=== PATIENT | female | born 1960 | race Caucasian/White ===

== ENCOUNTER 2024-07-08 16:06 | Inpatient (IN) | payer MEDICARE, OTHER, SELFPAY ==
[2024-07-08] VITALS (13 sets, daily range): BP systolic 136–210; BP diastolic 63–100; PULSE 58–92; RESP 10–32; TEMP 36.6; O2SAT 95–100; BMI 27.3
--- NOTE | 2024-07-08 16:22 | EKG_ITS ---
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
[2024-07-08 16:46] LABS: Add Manual Diff / Slide Review NO; Basophils Absolute Auto 100 /uL (0-100); Basophils Percent Auto 0.9 % (0-2); Eosinophils Absolute Auto 500 /uL (0-450); Eosinophils Percent Auto 8.7 % (2-4); Hematocrit 42.7 % (36-46); Hemoglobin 14.6 g/dL (12.0-16.0); Lymphocytes Absolute Auto 1700 /uL (1100-4500); Lymphocytes Percent Auto 28.5 % (25-40); Mean Corpuscular HGB Conc 34.1 % (30-36); Mean Corpuscular Hemoglobin 30.3 PG (26-34); Monocytes Absolute Auto 700 /uL (0-900); Monocytes Percent Auto 11.4 % (3-14); Neutrophils Absolute Auto 2900 /uL (1500-7000); Neutrophils Percent Auto 50.5 % (50-75); Platelet Count 284 X10^3/uL (150-400); Red Cell Distribution Width 12.8 % (11.6-14.8); White Blood Cell Count 5.8 X10^3/uL (4.5-11.0)
--- NOTE | 2024-07-08 16:55 | PC.NURSE ---
Pt refusing medication for pain. Waiting for MD to see then she will decide.
[2024-07-08 17:05] LABS: Alanine Aminotransferase 43 IU/L (<35); Albumin 4.6 g/dL (3.5-5.0); Albumin Globulin Ratio 1.3 (1.0-2.8); Alkaline Phosphatase 67 U/L (38-126); Aspartate Aminotransferase 55 IU/L (14-36); Blood Urea Nitrogen 18 mg/dL (7-17); Calcium 9.9 mg/dL (8.4-10.2); Carbon Dioxide 24 mmol/L (22-32); Chloride 106 mmol/L (98-107); Estimated Glomerular Filt Rate > 60 mL/min (>60); Globulin 3.5 g/dL (1.7-4.1); Glucose 92 mg/dL (70-99); HEMOLYSIS < 15 (0-50); Lipase 126 U/L (23-300); Potassium 3.5 mmol/L (3.4-5.1); Sodium 140 mmol/L (137-145); Total Protein 8.1 g/dL (6.3-8.2)
--- NOTE | 2024-07-08 17:06 | PC.NURSE ---
Pt reports that she is out of pain. Walking to BR. Appears in NAD.
--- NOTE | 2024-07-08 18:16 | DI.RAD.S_ITS ---
PROCEDURE: XR CHEST 1V INDICATIONS: chest pain TECHNIQUE: One view of the chest was acquired. COMPARISON: None. FINDINGS: Surgical changes and devices: None. Lungs and pleura: Lungs are clear. No pleural effusions or pneumothorax. Mediastinum: Mediastinal contours appear normal. Heart size is normal. Bones and chest wall: No suspicious bony lesions. Overlying soft tissues appear unremarkable. IMPRESSION: No acute cardiopulmonary abnormality is seen. Approved by: Troy Person M.D. on 07/08/2024 at 17:44
--- NOTE | 2024-07-08 18:17 | ED.ABDPAIN ---
HPI - Abdominal Pain General Chief Complaint: Abdominal Pain Stated Complaint: ABD PAIN, NAUSEA Time Seen by Provider: 07/08/24 16:20 Mode of arrival: Ambulatory History of Present Illness HPI narrative: 63-year-old female history of type 2 diabetic, MS with left eye optic neuritis, presents with epigastric and chest pain earlier today while talking took 4 Tums with no significant relief of her symptoms described as sharp heaviness pain nonradiating with nausea but no vomiting or diarrhea. She last ate a diabetic protein meal earlier today last bout was earlier today as well. Denies nausea, diaphoresis, jaw pain, back pain, neck pain, arm pain, shortness of breath, dyspnea on exertion, leg pain, leg swelling, cough or UTI symptoms. Other than what is stated 14 point review of system is negative. Related Data Allergies Allergy/AdvReac Type Severity Reaction Status Date / Time Iodinated Contrast Media Allergy Rash Verified 07/08/24 18:24 iodine Allergy Verified 07/08/24 16:21 Review of Systems Review of Systems ROS Unobtainable: All systems reviewed & are unremarkable except as noted in HPI and below Patient History Social History Smoking Status: Never smoker Smoking Status: Never smoker Exam Narrative Exam Narrative: GENERAL: [63] year old patient appears stated age. Well-developed patient, in mild distress. HEAD: Atraumatic. Normocephalic. EYES: Pupils equal round and reactive. Extraocular motions intact. No scleral icterus. No injection or drainage. ENT: Nose without bleeding, purulent drainage. Throat without erythema, tonsillar hypertrophy or exudate. Airway patent. NECK: Trachea midline. Non tender CARDIOVASCULAR: Regular rate and rhythm without murmurs, gallops, or rubs. RESPIRATORY: Clear to auscultation. Breath sounds equal bilaterally. No wheezes, rales, or rhonchi. GASTROINTESTINAL: Abdomen soft, RUQ and epigastric TTP but no r/r/g, nondistended. EXTREMITIES: No edema or joint tenderness. BACK: Nontender without deformity or crepitance. No flank tenderness. NEURO: AOx3. SKIN: No rash or erythema of visible areas Initial Vital Signs Initial Vital Signs: Vital Signs Pulse Rate 79 07/08/24 16:13 Blood Pressure 210/100 H 07/08/24 16:13 Pulse Oximetry 95 07/08/24 16:13 Course Orders Ordered: ED Orders 07/08/24 16:25 Complete Blood Count AUTO DIFF Stat Comprehensive Metabolic Panel Stat Lipase Stat Troponin I Stat 07/08/24 18:16 CXR [XR chest 1V] Stat EKG-12 Lead Stat 07/08/24 18:30 CT abdomen pelvis w con Stat 07/08/24 20:10 US abdomen limited Stat Bisacodyl (Bisacodyl 10 Mg Supp) 10 mg AR DAILY PRN PRN Reason: Constipation Famotidine (Famotidine 20 Mg/2 Ml Vial) 20 mg IV NOW [facility] Last Admin: 07/08/24 18:29 Dose: 20 mg Documented By: RB Hydromorphone HCl (Hydromorphone 0.5 Mg Inj) 0.5 mg IV Q2H PRN PRN Reason: Pain, Severe (7-10) Lactated Ringer's (Lactated Ringers) 1,000 mls @ 100 mls/hr IV CONT [facility] Last Admin: 07/09/24 00:00 Dose: 100 mls/hr Documented By: MARIA G Naloxone HCl (Naloxone 0.4 Mg/Ml Vial) 0.2 mg IV Q2MIN PRN PRN Reason: Opiate Reversal Ondansetron HCl (Ondansetron 4 Mg/2 Ml Inj) 4 mg IV Q8HR PRN PRN Reason: Nausea And Vomiting Discontinued Medications Diphenhydramine HCl (Diphenhydramine 50 Mg/Ml Vial) 50 mg IV NOW ONE Stop: 07/08/24 18:18 Last Admin: 07/08/24 18:29 Dose: 50 mg Documented By: RB Lactated Ringer's (Lactated Ringers) 1,000 mls @ 1,000 mls/hr IV BOLUS ONE Stop: 07/08/24 21:10 Last Infusion: 07/08/24 22:00 Dose: Infused Documented By: MARIA G Admin: 07/08/24 20:17 Dose: 1,000 mls/hr Documented By: Piperacillin Sod/Tazobactam (Sod 4.5 gm/ Sodium Chloride) 100 mls @ 200 mls/hr IV NOW ONE Stop: 07/08/24 21:47 Last Infusion: 07/08/24 22:45 Dose: Infused Documented By: MARIA G Admin: 07/08/24 22:05 Dose: 200 mls/hr Documented By: MARIA G Methylprednisolone (Methylprednisolone 125 Mg/2 Ml Vial) 125 mg IV NOW ONE Stop: 07/08/24 18:18 Last Admin: 07/08/24 18:29 Dose: 125 mg Documented By: RB Vital Signs Vital signs: Vital Signs - 8 hr 07/08/24 17:00 07/08/24 17:10 07/08/24 17:10 Pulse Rate 65 64 Respiratory Rate 32 H 10 L Blood Pressure 144/65 H Pulse Oximetry 100 100 Oxygen Delivery Method Room Air 07/08/24 17:30 07/08/24 17:30 07/08/24 18:00 Pulse Rate 64 Respiratory Rate 21 Blood Pressure 136/63 148/70 H Pulse Oximetry 100 Oxygen Delivery Method 07/08/24 18:00 07/08/24 18:30 07/08/24 18:30 Pulse Rate 62 67 Respiratory Rate 20 23 Blood Pressure 168/73 H Pulse Oximetry 100 100 Oxygen Delivery Method 07/08/24 18:39 07/08/24 18:39 07/08/24 21:00 Pulse Rate 92 H 65 Respiratory Rate 20 Blood Pressure 169/76 H 143/74 H Pulse Oximetry 100 98 Oxygen Delivery Method Room Air MDM - Abdominal Pain Lab Data 07/08/24 16:25 07/08/24 16:25 Labs: Lab Results 07/08/24 Range/Units 16:25 WBC 5.8 (4.5-11.0) X10^3/uL RBC 4.80 (4.0-5.2) X10^6/uL Hgb 14.6 (12.0-16.0) g/dL Hct 42.7 (36-46) % MCV 89.0 (80-100) fL MCH 30.3 (26-34) PG MCHC 34.1 (30-36) % RDW 12.8 (11.6-14.8) % Plt Count 284 (150-400) X10^3/uL Neut % (Auto) 50.5 (50-75) % Lymph % (Auto) 28.5 (25-40) % [place] % (Auto) 11.4 (3-14) % Eos % (Auto) 8.7 H (2-4) % Baso % (Auto) 0.9 (0-2) % Neut # (Auto) 2900 (1980-0875) /uL Lymph # (Auto) 1700 (7281-5968) /uL [place] # (Auto) 700 (0-900) /uL Eos # (Auto) 500 H (0-450) /uL Baso # (Auto) 100 (0-100) /uL Sodium 140 (137-145) mmol/L Potassium 3.5 (3.4-5.1) mmol/L Chloride 106 (98-107) mmol/L Carbon Dioxide 24 (22-32) mmol/L BUN 18 H (7-17) mg/dL Creatinine 0.82 (0.52-1.04) mg/dL Estimated GFR > 60 (>60) mL/min BUN/Creatinine Ratio 22.0 (6-22) Glucose 92 (70-99) mg/dL Calcium 9.9 (8.4-10.2) mg/dL Total Bilirubin 1.0 (0.2-1.3) mg/dL AST 55 H (14-36) IU/L ALT 43 H (<35) IU/L Alkaline Phosphatase 67 (38-126) U/L Troponin I < 0.012 (0.01-0.034) ng/mL Total Protein 8.1 (6.3-8.2) g/dL Albumin 4.6 (3.5-5.0) g/dL Globulin 3.5 (1.7-4.1) g/dL Albumin/Globulin Ratio 1.3 (1.0-2.8) Lipase 126 (23-300) U/L Point of care testing: Urine Dip Bedside Urine Glucose Negative Bedside Urine Bilirubin - Negative Bedside Urine Ketone - Negative Urine Specific [place] 1.010 Bedside Urine Occult Blood - Negative Bedside Urine pH 7.5 Bedside Urine Protein - Negative Bedside Urine Urobilinogen - Negative Bedside Urine Nitrite - Negative Bedside Urine Leukocytes - Negative Esterase Imaging Data CT scan - abdomen/pelvis: Radiologist's Impression: [address] [address] [address] Scan Report Signed Patient: Desiree Whitaker MR#: [id number] : 1960 Acct:[id number] Age/Sex: 63 / F Date of Service: 07/08/24 Loc: ED Accession Number: [id number] Procedure: CT abdomen pelvis w con Ordering Provider: Henri Martínez D.O. PROCEDURE: CT ABDOMEN PELVIS W CON INDICATIONS: ruq/epigastric pain/nausea TECHNIQUE: After the administration of intravenous contrast, axial sections acquired from the lung bases to the pubic symphysis. Coronal and sagittal reformats were performed. For radiation dose reduction, the following was used: automated exposure control, adjustment of mA and/or kV according to patient size. COMPARISON: None. FINDINGS: Image quality: Diagnostic Lower chest: Unremarkable lung bases. Possible coronary calcifications. Gastric band, in expected position. Liver: Liver contour is minimally irregular Gallbladder and biliary system: Mildly distended gallbladder with moderate wall thickening and pericholecystic edema. No biliary ductal dilation Pancreas: No ductal dilation Spleen: Nonenlarged Adrenals: No discrete nodules Kidneys: No solid renal mass. 1 cm partially calcified cyst is seen in the left lower pole. No hydronephrosis. Vessels and lymph nodes: The main portal vein is patent. No abdominal aortic aneurysm. No pathologic lymphadenopathy by size criteria. Bowel and peritoneum: No acute small bowel obstruction. [id number] fecal loading. No drainable abscess or ascites is seen. Colonic diverticula. Nondilated appendix Body wall: Small fat containing umbilical hernia Pelvis: Bladder is unremarkable. Reproductive organs unremarkable on limited CT evaluation Bones: No aggressive appearing osseous abnormality. There are degenerative changes. IMPRESSION: Mild gallbladder distention and moderate surrounding edema, possibly cholecystitis. Consider sonographic correlation for Ravi's sign. Minimally irregular liver contour possibly chronic liver disease. Gastric band in place. No bowel obstruction. Coronary calcifications. 1 cm partially calcified cyst is suspected in the left lower renal pole. No definite enhancing renal mass. Other findings above. Dictated by: Sawyer Corley M.D. on 07/08/2024 at 18:53 Approved by: Sawyer Corley M.D. on 07/08/2024 at 18:57 US - abdomen: Radiologist's Impression: [address] [address] Ultrasound Report Signed Patient: Desiree Whitaker MR#: [id number] : 1960 Acct:[id number] Age/Sex: 63 / F Date of Service: 07/08/24 Loc: ED Accession Number: [id number] Procedure: US abdomen limited Ordering Provider: Henri Martínez D.O. PROCEDURE: US ABDOMEN LIMITED INDICATIONS: cholecystitis TECHNIQUE: Real-time scanning was performed of the abdominal and retroperitoneal organs, with image documentation. COMPARISON: [facility], CT, CT ABDOMEN PELVIS W CON, 07/08/2024, 18:30. FINDINGS: Liver: Liver is normal in size and homogeneous in echotexture. Gallbladder: No gallstones. Diffuse wall thickening. Pericholecystic fluid and positive sonographic Ravi sign. Biliary ducts: Intrahepatic bile ducts are non-dilated. Extrahepatic bile duct caliber measures 8 mm. Normal is 6-7 mm or less in diameter, or 10 mm or less post-cholecystectomy. Pancreas: Visualized portions of the pancreas are sonographically normal. Miscellaneous: No free abdominal fluid. IMPRESSION: No gallstones are seen. However, the gallbladder demonstrates diffuse wall thickening with positive sonographic Ravi sign and pericholecystic edema which is concerning for acute cholecystitis. Additionally, the common bile duct is dilated at 8 mm. Findings suggest choledocholithiasis. Consider ERCP or MRCP for confirmation. ECG Data Interpretation: NSR HR 76 AR 126 QRS [address]-t wave change No previous ekg to compare MDM Narrative Medical decision making narrative: All lab work vital signs nurse triage note medication list previous ER visits in all imaging studies reviewed. CT scan showed mild gallbladder distention and moderate surrounding edema possibly cholecystitis. No gallstones seen however gallbladder demonstrates diffuse wall thickening with positive Ravi's sign and pericholecystic edema concerning for acute cholecystitis. Additionally: Bile duct is dilated at 8 mm findings suggest choledocholithiasis. Case discussed with Dr. Noland surgeon on-call who recommended patient be admitted to hospitalist service to give Zosyn MRCP NPO after midnight IV fluids and pain control. Case discussed with Dr. Mason hospitalist who has graciously accepted the patient for an inpatient admission. Discharge Plan Departure Patient Disposition: Admitted as Observation Clinical Impression: Choledocholithiasis with acute cholecystitis Admit Date/Time: 07/08/24 22:15 Admit Provider: Dylan Arceo
[2024-07-08] MEDS: methylPREDNISolone 125 MG/2 ML VIAL IV (18:29)
[2024-07-08] MEDS: diphenhydrAMINE 50 MG/ML VIAL IV (18:29)
[2024-07-08] MEDS: FAMOTIDINE 20 MG/2 ML VIAL IV (18:29)
--- NOTE | 2024-07-08 18:30 | DI.CT.S_ITS ---
PROCEDURE: CT ABDOMEN PELVIS W CON INDICATIONS: ruq/epigastric pain/nausea TECHNIQUE: After the administration of intravenous contrast, axial sections acquired from the lung bases to the pubic symphysis. Coronal and sagittal reformats were performed. For radiation dose reduction, the following was used: automated exposure control, adjustment of mA and/or kV according to patient size. COMPARISON: None. FINDINGS: Image quality: Diagnostic Lower chest: Unremarkable lung bases. Possible coronary calcifications. Gastric band, in expected position. Liver: Liver contour is minimally irregular Gallbladder and biliary system: Mildly distended gallbladder with moderate wall thickening and pericholecystic edema. No biliary ductal dilation Pancreas: No ductal dilation Spleen: Nonenlarged Adrenals: No discrete nodules Kidneys: No solid renal mass. 1 cm partially calcified cyst is seen in the left lower pole. No hydronephrosis. Vessels and lymph nodes: The main portal vein is patent. No abdominal aortic aneurysm. No pathologic lymphadenopathy by size criteria. Bowel and peritoneum: No acute small bowel obstruction. [id number] fecal loading. No drainable abscess or ascites is seen. Colonic diverticula. Nondilated appendix Body wall: Small fat containing umbilical hernia Pelvis: Bladder is unremarkable. Reproductive organs unremarkable on limited CT evaluation Bones: No aggressive appearing osseous abnormality. There are degenerative changes. IMPRESSION: Mild gallbladder distention and moderate surrounding edema, possibly cholecystitis. Consider sonographic correlation for Ravi's sign. Minimally irregular liver contour possibly chronic liver disease. Gastric band in place. No bowel obstruction. Coronary calcifications. 1 cm partially calcified cyst is suspected in the left lower renal pole. No definite enhancing renal mass. Other findings above. Dictated by: Sawyer Corley M.D. on 07/08/2024 at 18:53 Approved by: Sawyer Corley M.D. on 07/08/2024 at 18:57
[2024-07-08 18:46] LABS: Troponin I < 0.012 ng/mL (0.01-0.034)
--- NOTE | 2024-07-08 20:10 | DI.US.S_ITS ---
PROCEDURE: US ABDOMEN LIMITED INDICATIONS: cholecystitis TECHNIQUE: Real-time scanning was performed of the abdominal and retroperitoneal organs, with image documentation. COMPARISON: [facility], CT, CT ABDOMEN PELVIS W CON, 07/08/2024, 18:30. FINDINGS: Liver: Liver is normal in size and homogeneous in echotexture. Gallbladder: No gallstones. Diffuse wall thickening. Pericholecystic fluid and positive sonographic Ravi sign. Biliary ducts: Intrahepatic bile ducts are non-dilated. Extrahepatic bile duct caliber measures 8 mm. Normal is 6-7 mm or less in diameter, or 10 mm or less post-cholecystectomy. Pancreas: Visualized portions of the pancreas are sonographically normal. Miscellaneous: No free abdominal fluid. IMPRESSION: No gallstones are seen. However, the gallbladder demonstrates diffuse wall thickening with positive sonographic Ravi sign and pericholecystic edema which is concerning for acute cholecystitis. Additionally, the common bile duct is dilated at 8 mm. Findings suggest choledocholithiasis. Consider ERCP or MRCP for confirmation. Dictated by: Parvez Vyas M.D. on 07/08/2024 at 21:05 Approved by: Parvez Vyas M.D. on 07/08/2024 at 21:07
[2024-07-08] MEDS: LACTATED RINGERS 1,000 ML 1000 ML IV (20:17)
[2024-07-08] MEDS: PIPERACILLIN/TAZO 4.5 GM in SODIUM CHLORIDE 0.9% 100 ML IV (22:05)
--- NOTE | 2024-07-08 23:21 | DI.MRI.S_ITS ---
PROCEDURE: MR ABDOMEN WO/W CON INDICATIONS: suspected choledocholithiasis TECHNIQUE: Coronal HASTE, axial 2D FLASH in- and [id number]; axial breath-hold T2 FSE with fat saturation from the hepatic dome to the iliac crests. Oblique coronal thin-slice and radial thick slab HASTE through the biliary system. Dynamic axial VIBE during administration of contrast. Post-contrast coronal VIBE or 2D FLASH with fat saturation from the hepatic dome to the iliac crests. Optional diffusion weighted imaging and ADC may be performed. COMPARISON: , CT, CT ABDOMEN PELVIS W CON, 07/08/2024, 18:30. , US, US ABDOMEN LIMITED, 07/08/2024, 20:48. FINDINGS: Image quality: Diagnostic Lower chest: Unremarkable lung bases Liver: Unremarkable Gallbladder and biliary system: Distended gallbladder. Mild pericholecystic edema. No definite CBD stones on MRI. CBD is mildly distended at 7 mm. There is a possible stone at the cystic duct (4/15) Pancreas: No ductal dilation. No focal enhancement Spleen: Nonenlarged Adrenals: 1.7 cm left adrenal adenoma, with lipid rich contents on chemical shift imaging. Kidneys: No solid mass. Calcification at the left lower pole as seen on CT. No hydronephrosis. Scattered cysts. Vessels and lymph nodes: No abdominal aortic aneurysm. No enlarged lymph nodes by size criteria Bowel and peritoneum: Gastric band in place. No bowel obstruction. Body wall: Unremarkable Bones: No aggressive appearing osseous abnormality IMPRESSION: Distended gallbladder with mild surrounding edema. The CBD is mildly distended as well, measuring 7 mm. Possible cystic duct stone (4/15). Consider ERCP or HIDA scan if further evaluation is needed 1.7 cm left adrenal adenoma. Correlate with biochemical testing to determine functional status. Other findings above Dictated by: Sawyer Corley M.D. on 07/09/2024 at 11:58 Approved by: Sawyer Corley M.D. on 07/09/2024 at 12:10
--- NOTE | 2024-07-08 23:27 | P.HP_ITS ---
History of Present Illness History of Present Illness Date Patient Seen: 07/09/24 Time Patient Seen: 02:00 Chief complaint: ABD Pain, nausea Narrative: 63 y/o with PMH of MS, Lt optic neuritis, DM, hypothyroidism, presented to ED with upper abdominal pain and nausea, starting after her lunch. CT abdomen and RUQ US showing cholecystitis. Suspected bile duct stone w/o cholestasis. Vitals and labs stable. Not septic. Discussed with surgeon business line controller. Admitted to medicine for MRCP and Sx assesment. [facility], [facility] Medical History (Updated 07/09/24 @ 05:31 by Dylan Loera MD) Hypothyroidism Diabetes Social History household members: spouse Smoking Status: Former smoker alcohol intake: never Meds Home Medications and Allergies Home Medications Medication Instructions Recorded Confirmed Type levothyroxine 125 mcg tablet 125 mcg PO DAILY 07/09/24 07/09/24 History tirzepatide 12.5 mg/0.5 mL 12.5 mg SUBCUT WEEKLY 07/09/24 07/09/24 History subcutaneous pen injector (Mounjaro) Allergies Allergy/AdvReac Type Severity Reaction Status Date / Time adhesive Allergy Verified 07/09/24 01:36 Iodinated Contrast Media Allergy Rash Verified 07/08/24 18:24 iodine Allergy Verified 07/08/24 16:21 morphine Allergy Verified 07/09/24 01:36 Review of Systems Review of Systems Narrative: General - w/o fever or chills GI - epigastric and right uipper quadrant pain, nausea CVS - chest pain RSA - w/o SOB or cough Exam Vital Signs (past 8 hours): - 07/08/24 16:13 07/08/24 16:13 07/08/24 16:15 Temperature 97.9 F Pulse Rate 79 78 Respiratory Rate 22 Blood Pressure 210/100 H 210/100 H Pulse Oximetry 95 100 Oxygen Delivery Method Room Air 07/08/24 16:30 07/08/24 17:00 07/08/24 17:10 Temperature Pulse Rate 67 65 Respiratory Rate 17 32 H Blood Pressure 144/65 H Pulse Oximetry 99 100 Oxygen Delivery Method 07/08/24 17:10 07/08/24 17:30 07/08/24 17:30 Temperature Pulse Rate 64 64 Respiratory Rate 10 L 21 Blood Pressure 136/63 Pulse Oximetry 100 100 Oxygen Delivery Method Room Air 07/08/24 18:00 07/08/24 18:00 07/08/24 18:30 Temperature Pulse Rate 62 67 Respiratory Rate 20 23 Blood Pressure 148/70 H Pulse Oximetry 100 100 Oxygen Delivery Method 07/08/24 18:30 07/08/24 18:39 07/08/24 18:39 Temperature Pulse Rate 92 H Respiratory Rate 20 Blood Pressure 168/73 H 169/76 H Pulse Oximetry 100 Oxygen Delivery Method 07/08/24 21:00 07/08/24 23:05 07/08/24 23:06 Temperature Pulse Rate 65 63 Respiratory Rate Blood Pressure 143/74 H 163/77 H Pulse Oximetry 98 100 Oxygen Delivery Method Room Air 07/08/24 23:06 Temperature Pulse Rate 62 Respiratory Rate Blood Pressure Pulse Oximetry 99 Oxygen Delivery Method Oxygen Delivery Method Room Air Narrative Exam Narrative: General - in no distress GI - abdomen not distended, minimally tender RUQ on palpation Skin - w/o jaundice CVS - RRR RS - normal respiratory effort Neuro - lucid, appropriate mood, Lt eye impaired vision Objective ECG Impression: NSR 76 without obvious ischemic changes Imaging US - abdomen: Radiologist's impression: No gallstones are seen. However, the gallbladder demonstrates diffuse wall thickening with positive sonographic Ravi sign and pericholecystic edema which is concerning for acute cholecystitis. Additionally, the common bile duct is dilated at 8 mm. Findings suggest choledocholithiasis. Consider ERCP or MRCP for confirmation. CT scan - abdomen: Radiologist's impression: Mild gallbladder distention and moderate surrounding edema, possibly cholecystitis. Consider sonographic correlation for Ravi's sign. Minimally irregular liver contour possibly chronic liver disease. Gastric band in place. No bowel obstruction. Coronary calcifications. 1 cm partially calcified cyst is suspected in the left lower renal pole. No definite enhancing renal mass. Other findings above. Labs 07/08/24 16:25 07/08/24 16:25 Labs: Laboratory Results - last 24 hr 07/08/24 16:25 WBC 5.8 RBC 4.80 Hgb 14.6 Hct 42.7 MCV 89.0 MCH 30.3 MCHC 34.1 RDW 12.8 Plt Count 284 Neut % (Auto) 50.5 Lymph % (Auto) 28.5 [place] % (Auto) 11.4 Eos % (Auto) 8.7 H Baso % (Auto) 0.9 Neut # (Auto) 2900 Lymph # (Auto) 1700 [place] # (Auto) 700 Eos # (Auto) 500 H Baso # (Auto) 100 Sodium 140 Potassium 3.5 Chloride 106 Carbon Dioxide 24 BUN 18 H Creatinine 0.82 Estimated GFR > 60 BUN/Creatinine Ratio 22.0 Glucose 92 Calcium 9.9 Total Bilirubin 1.0 AST 55 H ALT 43 H Alkaline Phosphatase 67 Troponin I < 0.012 Total Protein 8.1 Albumin 4.6 Globulin 3.5 Albumin/Globulin Ratio 1.3 Lipase 126 Assessment & Plan Assessment and plan (1) Acute cholecystitis: Status: Acute (2) Diabetes: Status: Acute (3) Hypothyroidism: Status: Acute Assessment & Plan narrative: Acute Cholecystitis - Zosyn - NPO - IVFs - antiemetics / pain management - Sx consultation pending after MRCP Suspected Choledocholithiasis - MRCP pending Hypothyroidism - levothyroxine with resumed PO DM - SS - tirzepatide at home DVT prophylaxis - SCDs Patient consented to telemedicine, audio-video encounter with RN assisting. Patient located at [place], [place]. Provider located in [place]. Time-Based Coding :: [TOTAL MINUTES] spent with patient and on the chart (including review of chart, obtaining history, exam, reviewing outside data, placing orders, documenting exam and treatment plan, and counseling patient) on [DATE].
[2024-07-09] VITALS (7 sets, daily range): BP systolic 125–153; BP diastolic 62–91; PULSE 58–71; RESP 16–18; TEMP 35.6–36.6; O2SAT 95–99
[2024-07-09] MEDS: PIPERACILLIN/TAZO 3.375 GM in SODIUM CHLORIDE 0.9% 100 ML IV ×3 (05:16→21:48)
[2024-07-09 06:31] LABS: Add Manual Diff / Slide Review NO; Basophils Absolute Auto 0 /uL (0-100); Basophils Percent Auto 0.2 % (0-2); Eosinophils Absolute Auto 0 /uL (0-450); Hematocrit 40.2 % (36-46); Hemoglobin 13.7 g/dL (12.0-16.0); Lymphocytes Absolute Auto 500 /uL (1100-4500); Lymphocytes Percent Auto 11.6 % (25-40); Mean Corpuscular HGB Conc 34.1 % (30-36); Mean Corpuscular Hemoglobin 30.4 PG (26-34); Mean Corpuscular Volume 89.1 fL (80-100); Monocytes Absolute Auto 100 /uL (0-900); Monocytes Percent Auto 1.2 % (3-14); Neutrophils Absolute Auto 3700 /uL (1500-7000); Platelet Count 255 X10^3/uL (150-400); Red Blood Cell Count 4.52 X10^6/uL (4.0-5.2); Red Cell Distribution Width 12.7 % (11.6-14.8); White Blood Cell Count 4.2 X10^3/uL (4.5-11.0)
[2024-07-09 06:42] LABS: Alanine Aminotransferase 274 IU/L (<35); Albumin 4.1 g/dL (3.5-5.0); Albumin Globulin Ratio 1.4 (1.0-2.8); Alkaline Phosphatase 82 U/L (38-126); Aspartate Aminotransferase 256 IU/L (14-36); BUN Creatinine Ratio 24.2 (6-22); Bilirubin Total 0.9 mg/dL (0.2-1.3); Blood Urea Nitrogen 15 mg/dL (7-17); Calcium 9.3 mg/dL (8.4-10.2); Carbon Dioxide 22 mmol/L (22-32); Chloride 108 mmol/L (98-107); Estimated Glomerular Filt Rate > 60 mL/min (>60); Glucose 131 mg/dL (70-99); HEMOLYSIS < 15 (0-50); Potassium 3.9 mmol/L (3.4-5.1); Sodium 138 mmol/L (137-145); Total Protein 7.1 g/dL (6.3-8.2)
--- NOTE | 2024-07-09 07:51 | P.PN_ITS ---
Subjective Subjective Interval history: Summary: 63 y/o with PMH of MS, Lt optic neuritis, DM, hypothyroidism, presented to ED with upper abdominal pain and nausea, starting after her lunch. CT abdomen and RUQ US showing cholecystitis. Suspected bile duct stone w/o cholestasis. Vitals and labs stable. Not septic. Discussed with surgeon customer retention representative. Admitted to medicine for MRCP and Sx assesment. S: Pain improved, but still there. No nausea. Exam Vital Signs (past 8 hours): - 07/09/24 00:00 07/09/24 00:12 07/09/24 00:12 Temperature Pulse Rate 58 L 68 Respiratory Rate Blood Pressure 133/73 Pulse Oximetry 98 99 Oxygen Flow Rate 07/09/24 00:30 07/09/24 01:31 Temperature 96.1 F L Pulse Rate 66 66 Respiratory Rate 18 Blood Pressure 153/91 H Pulse Oximetry 97 99 Oxygen Flow Rate 0 Oxygen Delivery Method Room Air Oxygen Flow Rate 0 Narrative Exam Narrative: NAD, alert and oriented. Fluent speech. Lungs are clear, normal rate and effort. Heart is regular, no murmur gallop or rub. Abdomen is soft, non distended. RUQ and epigastric areas tender. Extremities are free of edema. Objective Imaging Multiple studies:: Radiologist's impression: US - abdomen: Radiologist's impression: No gallstones are seen. However, the gallbladder demonstrates diffuse wall thickening with positive sonographic Ravi sign and pericholecystic edema which is concerning for acute cholecystitis. Additionally, the common bile duct is dilated at 8 mm. Findings suggest choledocholithiasis. Consider ERCP or MRCP for confirmation. CT scan - abdomen: Radiologist's impression: Mild gallbladder distention and moderate surrounding edema, possibly cholecystitis. Consider sonographic correlation for Ravi's sign. Minimally irregular liver contour possibly chronic liver disease. Gastric band in place. No bowel obstruction. Coronary calcifications. 1 cm partially calcified cyst is suspected in the left lower renal pole. No definite enhancing renal mass. MRCP: Distended gallbladder with mild surrounding edema. The CBD is mildly distended as well, measuring 7 mm. Possible cystic duct stone (4/15). Consider ERCP or HIDA scan if further evaluation is needed 1.7 cm left adrenal adenoma. Correlate with biochemical testing to determine functional status. Labs 07/09/24 06:18 07/09/24 06:18 Labs: Laboratory Results - last 24 hr 07/08/24 07/09/24 16:25 06:18 WBC 5.8 4.2 L RBC 4.80 4.52 Hgb 14.6 13.7 Hct 42.7 40.2 MCV 89.0 89.1 MCH 30.3 30.4 MCHC 34.1 34.1 RDW 12.8 12.7 Plt Count 284 255 Neut % (Auto) 50.5 87.0 H D Lymph % (Auto) 28.5 11.6 L [place] % (Auto) 11.4 1.2 L Eos % (Auto) 8.7 H 0.0 L Baso % (Auto) 0.9 0.2 Neut # (Auto) 2900 3700 Lymph # (Auto) 1700 500 L [place] # (Auto) 700 100 Eos # (Auto) 500 H 0 Baso # (Auto) 100 0 Sodium 140 138 Potassium 3.5 3.9 Chloride 106 108 H Carbon Dioxide 24 22 BUN 18 H 15 Creatinine 0.82 0.62 Estimated GFR > 60 > 60 BUN/Creatinine Ratio 22.0 24.2 H Glucose 92 131 H Calcium 9.9 9.3 Total Bilirubin 1.0 0.9 AST 55 H 256 H ALT 43 H 274 H Alkaline Phosphatase 67 82 Troponin I < 0.012 Total Protein 8.1 7.1 Albumin 4.6 4.1 Globulin 3.5 3.0 Albumin/Globulin Ratio 1.3 1.4 Lipase 126 PFSH Medical History Hypothyroidism Diabetes Social History household members: spouse Smoking Status: Former smoker alcohol intake: never Assessment & Plan Assessment & Plan narrative: 1. Acute Cholecystitis, active. - Zosyn - NPO - IVFs 2. Suspected Choledocholithiasis, active. - MRCP negative. 3. Hypothyroidism, stable. - levothyroxine with resumed PO 4. DM 2, stable. - SS - tirzepatide at home PLAN: -surgical consult for acute cholecystitis and probable cholecystectomy 07/10. -continue antibiotics, nothing by mouth. DVT prophylaxis - SCDs Time-Based Coding :: [TOTAL MINUTES] spent with patient and on the chart (including review of chart, obtaining history, exam, reviewing outside data, placing orders, documenting exam and treatment plan, and counseling patient) on [DATE].
--- NOTE | 2024-07-09 08:32 | PC.NURSE ---
Pt A&O offers no overt c/o pain presently, asking when MRI might be. Conversant.
--- NOTE | 2024-07-09 12:50 | PC.NURSE ---
1250 MD at the bedside, speaking to patient regarding possible procedure tomorrow in AM. Patient verbalized understanding. No questions at this time.
[2024-07-09] MEDS: HYDROMORPHONE 0.5 MG INJ IV (13:30)
--- NOTE | 2024-07-09 17:42 | P.CONS_ITS ---
History of Present Illness Consult details Date Patient Seen: 07/09/24 Time Patient Seen: 17:42 Chief complaint: ABD Pain, nausea Narrative: Desiree is a 63-year-old woman who presented to the emergency department last night with about one day of abdominal pain. Her labs were significant for mild elevation of AST and ALT. She had a CT scan which showed inflammation around the gallbladder. She had an ultrasound which showed an inflamed thickened gallbladder wall without obvious gallstones. The common duct was noted to be slightly dilated. She then had an MRCP which showed no evidence of choledocholithiasis but a likely gallstone lodged in the cystic duct. She has history of a lap band which is currently deflated. Meds Home Medications and Allergies Home Medications Medication Instructions Recorded Confirmed Type levothyroxine 125 mcg tablet 125 mcg PO DAILY 07/09/24 07/09/24 History tirzepatide 12.5 mg/0.5 mL 12.5 mg SUBCUT WEEKLY 07/09/24 07/09/24 History subcutaneous pen injector (Mounjaro) Allergies Allergy/AdvReac Type Severity Reaction Status Date / Time adhesive Allergy Verified 07/09/24 01:36 Iodinated Contrast Media Allergy Rash Verified 07/08/24 18:24 iodine Allergy Verified 07/08/24 16:21 morphine Allergy Verified 07/09/24 01:36 Exam Vital Signs (past 8 hours): - 07/09/24 16:00 Temperature 97.6 F Pulse Rate 71 Respiratory Rate 17 Blood Pressure 141/74 H Pulse Oximetry 95 Oxygen Flow Rate 0 Oxygen Delivery Method Room Air Oxygen Flow Rate 0 Narrative Exam Narrative: Right upper quadrant is tender to palpation Objective Labs 07/09/24 06:18 07/09/24 06:18 Labs: Laboratory Results - last 24 hr 07/08/24 07/09/24 16:25 06:18 WBC 4.2 L RBC 4.52 Hgb 13.7 Hct 40.2 MCV 89.1 MCH 30.4 MCHC 34.1 RDW 12.7 Plt Count 255 Neut % (Auto) 87.0 H D Lymph % (Auto) 11.6 L [place] % (Auto) 1.2 L Eos % (Auto) 0.0 L Baso % (Auto) 0.2 Neut # (Auto) 3700 Lymph # (Auto) 500 L [place] # (Auto) 100 Eos # (Auto) 0 Baso # (Auto) 0 Sodium 138 Potassium 3.9 Chloride 108 H Carbon Dioxide 22 BUN 15 Creatinine 0.62 Estimated GFR > 60 BUN/Creatinine Ratio 24.2 H Glucose 131 H Calcium 9.3 Total Bilirubin 0.9 AST 256 H ALT 274 H Alkaline Phosphatase 82 Troponin I < 0.012 Total Protein 7.1 Albumin 4.1 Globulin 3.0 Albumin/Globulin Ratio 1.4 [facility] Medical History Hypothyroidism Diabetes Social History household members: spouse Tobacco & Substance Use Smoking Status: Former smoker alcohol intake: never Assessment & Plan Assessment and plan (1) Acute cholecystitis: Status: Acute Plan We discussed the findings of the diagnosis of acute cholecystitis. There was no evidence of choledocholithiasis however I recommend a cholangiogram as part of the surgery. I recommend we proceed with a robotic cholecystectomy with intraoperative cholangiogram. She would like to proceed. I did discuss with her the possibility of removing her lap band since it is not being used but she would like to focus on her gallbladder at this time and address the lap band in the future. We would only remove it if it was obscuring the view for surgery. She is on the schedule for surgery tomorrow morning. Time-Based Coding :: [TOTAL MINUTES] spent with patient and on the chart (including review of chart, obtaining history, exam, reviewing outside data, placing orders, documenting exam and treatment plan, and counseling patient) on [DATE]. PROFEE Charge Codes Inpatient or Observation consultation: [id number]
[2024-07-09] MEDS: LACTATED RINGERS 1,000 ML 100 ML IV ×2 (18:10)
[2024-07-09] MEDS: ACETAMINOPHEN 325 MG TABLET 975 MG PO (21:48)
[2024-07-10] VITALS (15 sets, daily range): BP systolic 128–178; BP diastolic 62–91; PULSE 55–104; RESP 15–99; TEMP 35.9–36.6; O2SAT 17–100; BMI 26.4
--- NOTE | 2024-07-10 | PATH_ITS ---
[facility] Accession Number: [id number] No. of containers..01 Tissue . 01 Material submitted: . gallbladder - GALLBLADDER . 01 Diagnosis: GALLBLADDER, CHOLECYSTECTOMY: Acute and chronic cholecystitis. One benign reactive lymph node. MRV 07/12/2024 1535 Local . 01 Electronically signed: . Kate Loya DO, Pathologist NPI- [id number] . 01 Gross description: . Received in formalin with two identifiers and gallbladder, is an intact gallbladder, 10.7 x 4.0 x 3.6 cm, with a slightly dusky but otherwise unremarkable external surface. The cystic duct margin is inked blue and a sierra pericystic lymph node candidate measuring 0.8 cm in greatest dimension is identified. The lumen contains a fragment of solidified bile, 1.5 x 1.2 x 0.3 cm with no calculi identified in the lumen or the container. Additional green viscous bile is present within the lumen. The mucosa is green and velvety with several small yellow areas of discoloration and no polyps or lesions identified. The hooper average 0.1 cm thick, and sales representative publications sections to include one-half of the bisected lymph node candidate, cystic duct margin, and full thickness sections are submitted in A1. ([id number]) /MRV 07/12/2024 0743 Local . 01 Pathologist provided ICD-10: R10.9 . 01 CPT . 283445 Specimen Comment: A courtesy copy of this report has been sent to [phone] Performed at: [address] [address], [place], [place] [id number] MD Natanael Carlin MD Phone: [phone]
--- NOTE | 2024-07-10 | DI.RAD.S_ITS ---
PROCEDURE: XR CHOLANGIOGRAM OPERATIVE INDICATIONS: lap lani IOC COMPARISON: None. FINDINGS: Biliary ducts: The surgeon injected contrast into the biliary ducts after cannulation of the cystic duct stump. Visualized intra- and extrahepatic bile ducts are normal in caliber, without strictures. No intraluminal filling defects to suggest retained ductal stones or sludge. No evidence for iatrogenic ductal injury. Duodenum: Contrast flows promptly through the sphincter of Oddi into the duodenum, which appears normal in caliber. IMPRESSION: No filling defect is seen in the common bile duct. Approved by: Troy Person M.D. on 07/10/2024 at 11:33
[2024-07-10] MEDS: DEXTROSE 5%-0.45NS W/KCL 20MEQ 1,000 ML 100 MEQ IV (00:07)
[2024-07-10 05:09] LABS: Alanine Aminotransferase 187 IU/L (<35); Albumin 3.6 g/dL (3.5-5.0); Albumin Globulin Ratio 1.2 (1.0-2.8); Alkaline Phosphatase 70 U/L (38-126); Aspartate Aminotransferase 103 IU/L (14-36); BUN Creatinine Ratio 19.2 (6-22); Bilirubin Total 0.6 mg/dL (0.2-1.3); Blood Urea Nitrogen 15 mg/dL (7-17); Calcium 8.8 mg/dL (8.4-10.2); Carbon Dioxide 24 mmol/L (22-32); Chloride 109 mmol/L (98-107); Estimated Glomerular Filt Rate > 60 mL/min (>60); Globulin 2.9 g/dL (1.7-4.1); Glucose 88 mg/dL (70-99); HEMOLYSIS < 15 (0-50); Potassium 3.7 mmol/L (3.4-5.1); Sodium 138 mmol/L (137-145); Total Protein 6.5 g/dL (6.3-8.2)
[2024-07-10 05:13] LABS: Hematocrit 35.9 % (36-46); Hemoglobin 12.6 g/dL (12.0-16.0); Mean Corpuscular HGB Conc 35.1 % (30-36); Mean Corpuscular Hemoglobin 31.2 PG (26-34); Mean Corpuscular Volume 88.9 fL (80-100); Platelet Count 243 X10^3/uL (150-400); Red Blood Cell Count 4.04 X10^6/uL (4.0-5.2); Red Cell Distribution Width 12.5 % (11.6-14.8); White Blood Cell Count 6.2 X10^3/uL (4.5-11.0)
[2024-07-10] MEDS: PIPERACILLIN/TAZO 3.375 GM in SODIUM CHLORIDE 0.9% 100 ML IV ×2 (05:52→13:01)
[2024-07-10] MEDS: LACTATED RINGERS 1,000 ML 42 ML IV ×2 (07:01→10:03)
--- NOTE | 2024-07-10 07:30 | PM.PN.1 ---
Subjective Subjective Interval history: Summary: She presented with acute cholecystitis. There was a concern for common bile duct stone, MRCP did not visualize a stone, her CBT was 7 mm. S: She is doing well after surgery, still somewhat uncomfortable and waking up. Exam Vital Signs (past 8 hours): - 07/10/24 00:27 07/10/24 04:37 07/10/24 06:50 Temperature 96.7 F L 96.9 F L 97.6 F Pulse Rate 65 58 L 61 Respiratory Rate 18 18 16 Blood Pressure 145/77 H 128/62 142/78 H Pulse Oximetry 98 98 100 Oxygen Delivery Method Room Air Oxygen Flow Rate 0 0 Oxygen Delivery Method Room Air Oxygen Flow Rate 0 Narrative Exam Narrative: NAD, alert and oriented. Fluent speech. Lungs are clear, normal rate and effort. Heart is regular, no murmur gallop or rub. Abdomen is soft, non distended. Extremities are free of edema. Objective Labs 07/10/24 04:30 07/10/24 04:30 Labs: Laboratory Results - last 24 hr 07/10/24 04:30 WBC 6.2 RBC 4.04 Hgb 12.6 Hct 35.9 L MCV 88.9 MCH 31.2 MCHC 35.1 RDW 12.5 Plt Count 243 Sodium 138 Potassium 3.7 Chloride 109 H Carbon Dioxide 24 BUN 15 Creatinine 0.78 Estimated GFR > 60 BUN/Creatinine Ratio 19.2 Glucose 88 Calcium 8.8 Total Bilirubin 0.6 AST 103 H ALT 187 H Alkaline Phosphatase 70 Total Protein 6.5 Albumin 3.6 Globulin 2.9 Albumin/Globulin Ratio 1.2 [facility] Medical History (Updated 07/10/24 @ 07:45 by Rupal Fernandez RN) Hypoglycemia associated with diabetes Arrhythmia Multiple sclerosis Hypothyroidism Diabetes Social History household members: spouse Smoking Status: Former smoker alcohol intake: never Assessment & Plan Assessment & Plan narrative: 1. Cholecystitis, active. 2. Suspected Choledocholithiasis, active. - MRCP negative. 3. Hypothyroidism, stable. - levothyroxine with resumed PO 4. DM 2, stable. - SS PLAN: -S/P cholecystectomy 07/10. -Monitor pain. Time-Based Coding :: [TOTAL MINUTES] spent with patient and on the chart (including review of chart, obtaining history, exam, reviewing outside data, placing orders, documenting exam and treatment plan, and counseling patient) on [DATE].
--- NOTE | 2024-07-10 07:31 | PM.PN.IH.1 ---
Subjective Subjective Date Patient Seen: 07/10/24 Time Patient Seen: 07:31 Interval history: Feels better today. LFTs downtrending Exam Vital Signs (past 8 hours): - 07/10/24 00:27 07/10/24 04:37 07/10/24 06:50 Temperature 96.7 F L 96.9 F L 97.6 F Pulse Rate 65 58 L 61 Respiratory Rate 18 18 16 Blood Pressure 145/77 H 128/62 142/78 H Pulse Oximetry 98 98 100 Oxygen Delivery Method Room Air Oxygen Flow Rate 0 0 Oxygen Delivery Method Room Air Oxygen Flow Rate 0 Const General: No acute distress Resp Effort & Inspection: normal respiratory effort Objective Labs 07/10/24 04:30 07/10/24 04:30 Labs: Laboratory Results - last 24 hr 07/10/24 04:30 WBC 6.2 RBC 4.04 Hgb 12.6 Hct 35.9 L MCV 88.9 MCH 31.2 MCHC 35.1 RDW 12.5 Plt Count 243 Sodium 138 Potassium 3.7 Chloride 109 H Carbon Dioxide 24 BUN 15 Creatinine 0.78 Estimated GFR > 60 BUN/Creatinine Ratio 19.2 Glucose 88 Calcium 8.8 Total Bilirubin 0.6 AST 103 H ALT 187 H Alkaline Phosphatase 70 Total Protein 6.5 Albumin 3.6 Globulin 2.9 Albumin/Globulin Ratio 1.2 PFSH Medical History Hypothyroidism Diabetes Social History household members: spouse Smoking Status: Former smoker alcohol intake: never Assessment & Plan Assessment and plan (1) Acute cholecystitis: Status: Acute Plan Robotic cholecystectomy with intraoperative cholangiogram Time-Based Coding :: [TOTAL MINUTES] spent with patient and on the chart (including review of chart, obtaining history, exam, reviewing outside data, placing orders, documenting exam and treatment plan, and counseling patient) on [DATE]. PROFEE [employer]inder [employer] Machine Helper Document charge(s): No
[2024-07-10] MEDS: INDOCYANINE GREEN 25 MG VIAL IV (07:42)
[2024-07-10] MEDS: ACETAMINOPHEN IV 1,000 MG/100 ML VIAL 400 MG IV (07:42)
--- NOTE | 2024-07-10 08:34 | SUR.OPER ---
Supine on padded OR bed, head on pillow, arms padded and tucked at sides, legs uncrossed, safety belt at thigh, tape over blanket over lower legs .
[2024-07-10] MEDS: BUPIVACAINE 0.5% (PF) 30 ML VIAL INJ (08:45)
[2024-07-10] MEDS: iopamidoL 30 ML VIAL INJ (08:46)
--- NOTE | 2024-07-10 10:19 | P.OP_ITS ---
Operative Date/Time/Diagnoses Date of procedure: 07/10/24 Time of procedure: 10:19 Pre-op diagnosis: Acute cholecystitis Post-op diagnosis: same Procedure & Clinicians Procedure: Robotic cholecystectomy with intraoperative cholangiogram Same procedure as scheduled: Yes Surgeon: Franck Krishnan [employer] Maintenance Worker: Cristobal Bean Anesthesia Type: General Operative Notes Findings: The cholangiogram showed no evidence of choledocholithiasis or other bile duct obstruction Estimated Blood Loss (mL): 10 Procedure in detail: The patient was scheduled antibiotics. The patient was brought to the operating room, placed on the table in the supine position. General endotracheal anesthesia was induced. Both arms were tucked. The abdomen was prepped and draped. A time-out was performed. We made a 1 cm infraumbilical incision. We dissected down to the base of the umbilical stalk using cautery. We grasped the umbilical stalk with a Wendy clamp to elevate the abdominal wall. We opened the fascia in the midline with cautery. We pierced the peritoneum with a Peon clamp. The Dony port was placed and the abdomen was insufflated to 15 mmHg. The endoscope was inserted. There was no evidence of any injury from the entry. There were some adhesions of omentum to the anterior abdominal wall in the left abdomen. We placed an 8 mm port in the right abdomen lateral to the umbilicus. Some of these adhesions were taken down using the laparoscopic hot scissors under direct vision. Finally we placed two 8 mm ports in the left abdomen. The patient was then positioned in 15? of reverse Trendelenburg and the table was tilted slightly to the left. The robot was brought in from the patient's left side and docked. A fenestrated bipolar was placed through arm 1, the hook cautery through arm 3 and the ProGrasp through arm 4. The gallbladder was grasped at the dome with the ProGrasp and retracted cephalad. There were some adhesions of [] which were carefully dissected with cautery to allow full retraction of the gallbladder. We then dissected the cystic structures with hook cautery. We obtained a critical view. Next, a cholangiogram was performed using the 4 Cypriot ureteral catheter through a 14 gauge Angiocath placed in the right upper quadrant.. There was good flow of contrast into the duodenum and liver with no obvious filling defects. The cystic duct-common duct junction was well visualized. We then placed hemoclips on the cystic duct and artery and divided the cystic duct and artery between the clips. The gallbladder was then dissected off the liver and placed in a specimen retrieval bag. A small amount of blood was suctioned out of the right upper quadrant.. We then removed the 8 mm ports under direct vision we removed the 12 mm port. We then injected some local into the fascia and closed the fascia at the infraumbilical incision with [] interrupted 0 Vicryl sutures. The skin incisions were closed with 4 Monocryl and Steri-Strips were applied. Band-Aids were applied over the Steri-Strips. EBL: 10 mL Specimen: Gallbladder and contents Complications: none Post-operative Condition: stable Disposition: PACU
[2024-07-10] MEDS: ONDANSETRON 4 MG/2 ML INJ IV (10:31)
[2024-07-10] MEDS: METOCLOPRAMIDE 10 MG/2 ML INJ IV (10:34)
[2024-07-10] MEDS: FAMOTIDINE 20 MG/2 ML VIAL IV (10:48)
[2024-07-10] MEDS: hydrOXYzine 50 MG/ML INJ 25 MG IM (10:49)
[2024-07-10] MEDS: HYDROMORPHONE 0.5 MG INJ IV (11:37)
[2024-07-10] MEDS: SCOPOLAMINE 1 PATCH TOP (11:43)
--- NOTE | 2024-07-10 12:09 | CM.DANOTE ---
Initial DCP Assessment Visit Note Reviewed EMR and team rounds for pt's medical status and updates. Met with pt at bedside to introduce self and role, pt was found to be alert/oriented, somnolent, yet able to describe her home living situation and plan for home d/c. Pt lives independently with her spouse in their own home in [place], [place]. She is here visiting her sister, however her spouse is travelling over to pick her up and take her home once she's medically cleared for d/c, which will be either this evening or tomorrow am. Pt denies any CM d/c assistance/resource needs at this time. Payor: [facility] No PCP identified Pt is a 63 year-old F who presented to the ED 2-days ago with epigastric and chest pain, described as sharp, heavy pain, as well as nausea. She has a primary medical hx of MS. CT abd. showed cholecystitis and a suspected bile duct stone. ERCP was completed yesterday, a stone was found, and surgery for cholecystectomy was planned for today. Surgery was completed earlier this am, pt is doing well postoperatively. Plan is to monitor her for being able to void, tolerate diet, and d/c home with family. DCP will continue to monitor for any further evolving needs prior to d/c. Discharge Planning/Care Management CM Discharge Assessment Start: 07/08/24 22:23 Freq: Status: Active Protocol: Document 07/10/24 12:08 DPL (Rec: 07/10/24 12:09 DPL [id number]) Discharge Planning Assessment Assigned Pediatric Oncology Nurse ANDREWS Holland Advance Directives? No History Provided By Patient,Medical Record Has Patient been admitted in last 30 No days? Prior Living Arrangements House Household Members spouse Type of transporation used prior to Drives own vehicle admit Independent with ADL's Yes Is patient alert and oriented? Yes Caregiver for Another No Comment No anticipated home d/c needs at this time. Barriers to Discharge No Discharge Plan Home Referrals Initiated None needed Whiteboard Updated in Patient Room with Yes name and ext. # of Pediatric Oncology Nurse Review Status In Process Please Provide Date Initial DC 07/10/24 Assessment Was Performed
[2024-07-10] MEDS: HYDROCODONE/ACET 5/325 TABLET 1 TAB PO (16:27)
--- NOTE | 2024-07-10 16:31 | PM.DS.1 ---
History of Present Illness History of Present Illness Chief complaint: ABD Pain, nausea Narrative: From H&P: 63 y/o with PMH of MS, Lt optic neuritis, DM, hypothyroidism, presented to ED with upper abdominal pain and nausea, starting after her lunch. CT abdomen and RUQ US showing cholecystitis. Suspected bile duct stone w/o cholestasis. Vitals and labs stable. Not septic. Discussed with surgeon marketing communications manager. Admitted to medicine for MRCP and Sx assesment. Discharge Providers Provider Date of admission: 07/08/24 22:15 Discharge Date: 07/10/24 Consults: Surgery for cholecystectomy Discharge provider: Say Coulter MD Summary Hospital Course Discharge Diagnosis: 1. Cholecystitis, improved. 2. Hypothyroidism, stable. 3. DM 2, stable. Hospital Course: Patient was a 63-year-old female admitted with cholecystitis. MRCP ruled out a common bile duct stone. She was able to undergo cholecystectomy without complication on July 10 and felt well enough to go home afterward. She was treated with IV antibiotics prior to her surgery. Status at Discharge Cognitive/behavioral status at discharge: oriented Functional status at discharge: independent ambulation Overall status at discharge: patient is back to baseline Time Spent with Patient Time spent: Greater than 30 minutes Exam Vital Signs (past 8 hours): - 07/10/24 10:20 07/10/24 10:25 07/10/24 10:30 Temperature Pulse Rate 104 H 95 H 91 H Respiratory Rate 18 20 19 Blood Pressure 160/91 H 158/86 H 156/84 H Pulse Oximetry 99 99 97 Oxygen Delivery Method Room Air Room Air Room Air Oxygen Flow Rate 07/10/24 10:35 07/10/24 10:40 07/10/24 10:45 Temperature 97.8 F Pulse Rate 83 84 82 Respiratory Rate 19 17 15 Blood Pressure 156/83 H 161/84 H 164/84 H Pulse Oximetry 97 97 98 Oxygen Delivery Method Room Air Room Air Room Air Oxygen Flow Rate 07/10/24 10:55 07/10/24 11:05 07/10/24 11:30 Temperature 97.6 F Pulse Rate 88 76 71 Respiratory Rate 22 99 H 16 Blood Pressure 165/86 H 162/85 H 178/87 H Pulse Oximetry 96 17 L 100 Oxygen Delivery Method Room Air Room Air Oxygen Flow Rate 0 07/10/24 12:00 07/10/24 12:30 07/10/24 13:30 Temperature Pulse Rate 55 L 58 L 55 L Respiratory Rate 16 17 18 Blood Pressure 151/73 H 158/78 H 154/72 H Pulse Oximetry 96 97 98 Oxygen Delivery Method Oxygen Flow Rate Oxygen Delivery Method Room Air Oxygen Flow Rate 0 Narrative Exam Narrative: NAD, alert and oriented. Fluent speech. Lungs are clear, normal rate and effort. Heart is regular, no murmur gallop or rub. Abdomen is soft, non distended. There was minimal tenderness, all wounds are unremarkable. Extremities are free of edema. Objective Imaging Multiple studies:: Radiologist's impression: Operative cholangiogram: No filling defect is seen in the common bile duct. MRCP: Distended gallbladder with mild surrounding edema. The CBD is mildly distended as well, measuring 7 mm. Possible cystic duct stone (4/15). Consider ERCP or HIDA scan if further evaluation is needed 1.7 cm left adrenal adenoma. Correlate with biochemical testing to determine functional status. Abdominal ultrasound: No gallstones are seen. However, the gallbladder demonstrates diffuse wall thickening with positive sonographic Ravi sign and pericholecystic edema which is concerning for acute cholecystitis. Additionally, the common bile duct is dilated at 8 mm. Findings suggest choledocholithiasis. Consider ERCP or MRCP for confirmation. Abdomen pelvis CT: Mild gallbladder distention and moderate surrounding edema, possibly cholecystitis. Consider sonographic correlation for Ravi's sign. Minimally irregular liver contour possibly chronic liver disease. Gastric band in place. No bowel obstruction. Coronary calcifications. 1 cm partially calcified cyst is suspected in the left lower renal pole. No definite enhancing renal mass. Chest x-ray: No acute cardiopulmonary abnormality is seen. Labs 07/10/24 04:30 07/10/24 04:30 Labs: Laboratory Results - last 24 hr 07/10/24 04:30 WBC 6.2 RBC 4.04 Hgb 12.6 Hct 35.9 L MCV 88.9 MCH 31.2 MCHC 35.1 RDW 12.5 Plt Count 243 Sodium 138 Potassium 3.7 Chloride 109 H Carbon Dioxide 24 BUN 15 Creatinine 0.78 Estimated GFR > 60 BUN/Creatinine Ratio 19.2 Glucose 88 Calcium 8.8 Total Bilirubin 0.6 AST 103 H ALT 187 H Alkaline Phosphatase 70 Total Protein 6.5 Albumin 3.6 Globulin 2.9 Albumin/Globulin Ratio 1.2 [facility] Medical History (Updated 07/10/24 @ 07:45 by Rupal Fernandez RN) Hypoglycemia associated with diabetes Arrhythmia Multiple sclerosis Hypothyroidism Diabetes Social History household members: spouse Smoking Status: Former smoker alcohol intake: never Discharge Assessment & Plan Assessment and Plan Assessment: 1. Cholecystitis status post cholecystectomy. Plan of Treatment: Routine postoperative care, pain medications as needed. Follow up with Dr. Krishnan and surgery within 2 weeks. Discharge Plan Discharge Plan Patient Disposition: Home Provider Discharge Comment: Stable for discharge home after cholecystectomy. We will follow up outpatient with Dr. Krishnan in surgery. Discharge orders & Medications Prescriptions: New hydrocodone-acetaminophen 5-325 mg tablet 1 tab PO Q8H PRN (Reason: pain) Qty: 14 0RF Continued levothyroxine 125 mcg tablet 125 mcg PO DAILY Mounjaro 12.5 mg/0.5 mL pen injector 12.5 mg SUBCUT WEEKLY Patient Comments: [NO ORIGINAL SIG] Diet/Activity/Treatments Diet: Diet as Tolerated Visit Report/Discharge Packet Instructions: DI for Laparoscopic Cholecystectomy, [facility]: Wound Care Stand Alone Forms: Patient Portal/API
--- NOTE | 2024-07-10 17:44 | PC.NURSE ---
Day shift: Discharge instructions gone over with patient by RN Mic Dennis. PIVx2 removed prior to discharge. All belongings with patient. This RN escorted patient via wheelchair to exit.
== END 2024-07-10 15:35 | disposition home or self-care (01) | DRG 419 ==
LOC: ED 18:00 → AC 22:22
PROVIDERS: Emergency Medicine; Hospitalist; Surgery; Admitting Provider Internal Medicine; Emergency Provider Family Medicine; Visit Provider Internal Medicine
PROC: 0FT44ZZ Resection of Gallbladder, Percutaneous Endoscopic Approach (ICD-10-PCS; CPT 47563; principal; 2024-07-10 07:45)
DX: K81.0 Acute cholecystitis (principal); G35 Multiple sclerosis; E03.9 Hypothyroidism, unspecified; E11.9 Type 2 diabetes mellitus without complications; Z87.891 Personal history of nicotine dependence; Z79.890 Hormone replacement therapy; Z79.85 Long-term (current) use of injectable non-insulin antidiabetic drugs
CPT/HCPCS: 36415; 71045; 74177; 74183; 74300; 76705; 80053; 81003; 82962; 83690; 84484; 85025; 85027; 93005; 96361; 96365; 96375; 99284; A9579; J0131; J0330; J1100; J1171; J1200; J1885; J2250; J2405; J2543; J2704; J2765; J2919; J3010; J3410; J3490; Q9967